=== PATIENT | male | born 1955 | race African-American/Black ===

== ENCOUNTER 2016-10-27 09:03 | Emergency (ER) | payer OTHER ==
[~2016-10-27 09:03] MED LIST: ALLEGRA PO; ASAB PO; BRILINTA90 MG PO; CALTRA600D PO; COZ25 PO; FISH OIL1200 MG PO; FISH-EPA1000 MG PO; GLUCCHONDR PO; IMDUR30 PO; LIPITOR40 PO; MAGOX4 PO; MICARDIS20 MG PO; MULTIPLE VIT PO; NITROSTAT0.4 MG SL; NORV5 PO; TOPXL25; TOPXL25 PO; VITAMIN D400 UNI1 PO; VITC500 PO; [UNRECOGNIZED DRUG - OTHER] OP
== END 2016-10-27 10:11 | disposition home or self-care (01) ==
LOC: ER 09:03
DX: S00.411A Abrasion of right ear, initial encounter (principal); M54.9 Dorsalgia, unspecified; I10 Essential (primary) hypertension; Z86.73 Personal history of transient ischemic attack (TIA), and cerebral infarction without residual deficits; Z79.82 Long term (current) use of aspirin; Z79.899 Other long term (current) drug therapy
CPT/HCPCS: 99283